=== PATIENT | male | born 1995 | race Caucasian/White ===

== ENCOUNTER 2019-01-23 19:43 | Emergency (ER) | payer OTHER, SELFPAY ==
[2019-01-23 19:44] VITALS: BP 126/73; PULSE 75; RESP 15; TEMP 36.8; O2SAT 97; BMI 27.8
--- NOTE | 2019-01-23 20:27 | RAD_ITS ---
STUDY: X-RAY - RIGHT HAND, ATTENTION THIRD FINGER REASON FOR EXAM: Male, 23 years old. Redness and edema. TECHNIQUE: 3 view(s) of the finger were obtained. COMPARISON: None. FINDINGS: Normal metacarpal head. Normal metacarpophalangeal joint. Normal proximal phalanx. Normal middle phalanx. Normal distal phalanx. Normal proximal interphalangeal joint. Normal distal interphalangeal joint. RAD/Finger(s) Min 2 Views IMPRESSION: Normal x-ray examination of the finger. Electronically Signed: Aubrie Gary MD at 21:19 EST Tel , Service support ,
[2019-01-23] MEDS: Diphth,Pertuss(Acell),Tet Vac 0.5 ML Vial IM (20:44)
[2019-01-23] MEDS: Cefazolin 1 GM/50 ML BAG IV (20:44)
--- NOTE | 2019-01-23 21:02 | ED.VIS.GEN ---
History of Present Illness Chief Complaint: Cellulitis Informant: Patient Onset: Days Context: Sudden Onset Timing: Continuous Quality: Swelling, redness Location: Right long finger Current Severity: Mild Maximum Severity: Moderate Worsened by: Initial injury and incising finger with knife this evening Relieved by: Nothing Associated Symptoms: Redness and swelling Narrative: Patient is a 23-year-old [id number] male who is immunized. He presents because of injury to his right long finger on the radial side that occurred several days ago. This occurred with a knife that he was using to cut meat. He states he had a slight abrasion. He developed redness and swelling. The redness swelling has progressed and now he has a red streak that goes to the area of the lateral epicondyle. Today he took a knife and attempted to cut it. He states it was superficial. He denies paresthesia, anesthesia or motor weakness. He denies pain with movement of his finger or hand. There is no history rheumatic fever. There is no history of heart murmur, SBE or being immune suppressed. Prior similar symptoms: No Recent Illness/Hospitalization: No - Past Medical History (1) No significant past medical history Status: Acute Past Medical History - Allergies and Home Meds Allergies/Adverse Reactions: Allergies No Known Allergies Allergy (Verified 01/23/19 19:47) Primary Care Physician: Hipolito Rucker MD [Primary Care Provider] - Prior records reviewed: No Past Medical History: None Surgical History: no surgical history Lives: Spouse/ Significant Other Smoking Status: Never smoker Drugs: None Review of Systems General: Denies: Chills, Fever, Subjective, Sweats Eyes: Denies: Visual changes - bilaterally, Blurred Vision - bilaterally ENT: Denies: Rhinorrhea, Sore throat Cardiovascular: Denies: Chest pain, Palpitations Respiratory: Denies: Dyspnea, Dyspnea on exertion Gastrointestinal: Denies: Abdominal pain, Nausea, Vomiting, Diarrhea Genitourinary: Denies: Dysuria, Hematuria, Frequency Musculoskeletal: Reports: Swelling, Extremity Pain. Denies: Myalgias, Arthralgias, Neck pain, Back pain Skin: Reports: Rash, Wounds Neurological: Denies: Weakness, Parasthesia, Numbness Endocrine: Denies: Polyuria, Polydipsia Hematologic: Denies: Easy bruising, Easy bleeding Physical Exam Vital Signs/Narrative: Vital Signs Temp Pulse Resp BP Pulse Ox 01/23/19 19:44 98.3 F 75 15 126/73 H 97 Inital Vital Signs reviewed: Yes General: Well nourished, Well developed, No Acute Distress Head: Normocephalic, Atraumatic Eyes: Perrl, EOMI. Negative for: Pale conjunctiva, Scleral icterus ENT: Moist mucous membranes, No rhinorrhea Neck: Supple, Nontender, No lymphadenopathy, No JVD Cardiovascular: Regular rate, Regular rhythm, No murmurs, Normal S1, Normal S2 Respiratory: No distress, CTA bilaterally, Chest nontender Extremities: No edema, Tenderness - Over area that patient cut, - - There is cellulitis of the right long finger with a lymphangitic streak to the lateral epicondyle. There is no pain with passive flexion or extension of the right long finger. There is no swelling of the PIP or DIP joint. Sensation is normal. Capillary refill is normal.. Negative for: Nontender Skin: Normal color, Rash Neurological: Alert, Oriented x3, Cranial nerves II-XII grossly intact, Normal Strength, Normal Sensation Psychological: Normal affect, Normal Mood Diagnostic/Tx/Re-eval Chest X-Ray - ED: Read by ED Physician, - - Review x-ray of the right finger reveals no foreign body, injury to the phalanx. There is no subcutaneous air. There is no swelling of the PIP joint. 01/23/19 20:27 Finger(s) Min 2 Views [RAD] Stat - Medical Decision Making She did have cellulitis secondary to a laceration of the right long finger. There is lymphangitic streaking. Immunization was updated and he received 1 g of Ancef IV piggyback. Will discharge to home with prescription for cephalexin and Bactrim. He was instructed to follow-up with his doctor for wound check in 2 days. If he is unable to be seen by his doctor for wound check he was instructed to return to the emergency department. ED Disposition - Plan for ED Patient: Disposition: Home or Assisted Living Diagnosis: Cellulitis of skin with lymphangitis Instructions: Cellulitis Prescriptions: Smz/Tmp Ds [Bactrim Ds] 1 tab PO BID #14 tab Prescription Printed Cephalexin [Keflex] 500 mg PO Q6 #28 cap Prescription Printed Referrals: Hipolito Rucker MD [Primary Care Provider] - 2 Days for wound check Additional Instructions: If you are not able to be seen by your physician in 2 days please return to the emergency department. If you develop temperature greater than 101, shaking chills or develop pain in your finger, wrist or elbow return to the emerge department immediately. Take antibiotics until gone
[2019-01-23 21:49] VITALS: BP 116/78; PULSE 81; RESP 14; O2SAT 99
== END 2019-01-23 22:07 | disposition home or self-care (01) ==
PROVIDERS: Emergency Provider Emergency Medicine; Family Provider Family Medicine; PCP Family Medicine
DX: L03.011 Cellulitis of right finger (principal); I89.1 Lymphangitis
CPT/HCPCS: 73140; 90715; 96365; 99283; J7040